=== PATIENT | female | born 1945 | race Caucasian/White ===

== ENCOUNTER 2018-04-13 07:06 | Emergency (ER) | payer MEDICARE, OTHER ==
[~2018-04-13] VITALS: Ht 165.1 cm; Wt 65.9 kg
[~2018-04-13 07:06] MED LIST: ATOR10TA87 PO; TRAM50TA2 PO; ZOF4T PO
[2018-04-13] MEDS ORDERED: normal saline 1000ML IV soln IVB ONE (07:15)
[2018-04-13] MEDS ORDERED: LISI-600 PO ×2 (07:47→10:36)
[2018-04-13 07:50] LABS: BASOPHILS # (AUTO) 0.1 X10'3 (0-0.2); BASOPHILS % (AUTO) 0.7 % (0-1); EOSINOPHILS # (AUTO) 0.1 X10'3 (0-0.9); EOSINOPHILS % (AUTO) 1.3 % (0-6); HEMATOCRIT 45.8 % (35.0-45.0); HEMOGLOBIN 15.4 g/dl (12.0-16.0); LYMPHOCYTES # (AUTO) 0.8 X10'3 (1.1-4.8); LYMPHOCYTES % (AUTO) 8.7 % (21-51); MEAN CORPUSCULAR HGB CONC 33.5 % (33.0-36.5); MEAN CORPUSCULAR VOLUME 92.4 FL (78-98); MEAN PLATELET VOLUME 8.6 FL (7.4-10.4); MONOCYTES # (AUTO) 0.3 X10'3 (0-0.9); MONOCYTES % (AUTO) 3.2 % (2-12); NEUTROPHILS # (AUTO) 7.9 X10'3 (1.8-7.7); NEUTROPHILS % (AUTO) 86.1 % (42-75); PLATELET COUNT 282 X10'3 (140-440); RED BLOOD COUNT 4.95 X10'6 (4.20-5.60); RED CELL DISTRIBUTION WIDTH 12.6 % (11.5-14.5); WHITE BLOOD COUNT 9.2 X10'3 (4.5-11.0)
[2018-04-13 08:03] LABS: ALANINE AMINOTRANSFERASE 26 U/L (12-78); ALBUMIN 4.4 G/DL (3.4-5.0); ALBUMIN/GLOBULIN RATIO 1.3 (1.1-1.5); ALKALINE PHOSPHATASE 93 IU/L (46-116); ANION GAP 12 (8-16); ASPARTATE AMINO TRANSFERASE 21 U/L (10-37); BILIRUBIN,TOTAL 0.7 MG/DL (0.1-1.0); BLOOD UREA NITROGEN 12 MG/DL (7-18); BUN/CREATININE RATIO 13.3 (6.6-38.0); CALCIUM 9.4 MG/DL (8.5-10.1); CHLORIDE 105 MMOL/L (99-107); GLUCOSE 149 MG/DL (70-104); POTASSIUM 3.9 MMOL/L (3.5-5.1); SODIUM 144 MMOL/L (135-145); TOTAL CARBON DIOXIDE 26.6 MMOL/L (24-32); TOTAL PROTEIN 7.7 G/DL (6.4-8.2); eGFR 62 ML/MIN
[2018-04-13] MEDS ORDERED: ondansetron/PF 4mg/2ml inj IV ONE (08:25)
[2018-04-13 08:53] LABS: CLARITY,URINE SLIGHTLY CLOUDY (Clear); COLOR,URINE STRAW (Yellow); GLUCOSE, URINE NEGATIVE (Neg); KETONES,URINE TRACE mg/dl (Neg); LEUKOCYTE ESTERASE ,URINE NEGATIVE (Neg); NITRITES, URINE NEGATIVE (Neg); OCCULT BLOOD,URINE NEGATIVE (Neg); PH,URINE 8.5 (4.8-8.0); PROTEIN,URINE NEGATIVE (Neg); UROBILINOGEN,URINE 0.2 E.U/dL (0.2-1.0)
[2018-04-13 09:00] LABS: UA COLLECTION TYPE CLN CATCH MIDSTREAM
[2018-04-13 09:01] LABS: MUCUS STRANDS FEW /LPF (Neg); SQUAMOUS EPITHELIAL CELL,UR FEW /LPF (FEW)
[2018-04-13 09:02] LABS: AMORPHOUS PHOSPHATES 1+; BACTERIA,URINE FEW /HPF (Neg); RBC,URINE NONE SEEN /HPF (0-2); WBC,URINE 0-4 /HPF (0-4)
[2018-04-13] MEDS ORDERED: ketorolac trometh. 30mg/ml inj. IV ONE (09:05)
[2018-04-13] MEDS ORDERED: ketorolac tromethamine 15mg/ml inj. IV ONE (09:10)
[2018-04-13] MEDS ORDERED: metoclopramide 5 mg/ml inj IV ONE (09:20)
[2018-04-13] MEDS ORDERED: diphenhydrAMINE 50 mg/ml inj IV ONE (09:20)
[2018-04-13 09:38] VITALS: BP 170/97
[2018-04-13 09:42] LABS: TROPONIN I < 0.04 NG/ML (0.0-0.05)
[2018-04-13] MEDS ORDERED: ONDA4TAB12 PO (10:09)
[2018-04-13] MEDS ORDERED: lisinopril 10 MG tablet PO ONE ×2 (10:10→10:30)
== END 2018-04-13 10:51 | disposition home or self-care (01) ==
LOC: ER 07:07
DX: S09.90XA Unspecified injury of head, initial encounter (principal); R11.2 Nausea with vomiting, unspecified; E78.00 Pure hypercholesterolemia, unspecified; I10 Essential (primary) hypertension; Z90.49 Acquired absence of other specified parts of digestive tract; Z90.710 Acquired absence of both cervix and uterus; Z88.5 Allergy status to narcotic agent; Z88.8 Allergy status to other drugs, medicaments and biological substances; Z79.899 Other long term (current) drug therapy; W01.198A Fall on same level from slipping, tripping and stumbling with subsequent striking against other object, initial encounter; Y93.89 Activity, other specified; Y92.098 Other place in other non-institutional residence as the place of occurrence of the external cause; Y99.8 Other external cause status
CPT/HCPCS: 36415; 70450; 80053; 81001; 84145; 84443; 84484; 85025; 93005; 96361; 96374; 96375; 99285; J1200; J1885; J2405; J2765; J7030

== ENCOUNTER 2019-11-14 13:15 | Emergency (ER) | payer MEDICARE ==
[~2019-11-14] VITALS: Ht 165.1 cm; Wt 64.0 kg
[~2019-11-14 13:15] MED LIST changes: -ATOR10TA87 PO; +LISI-600 PO; +ONDA4TAB12 PO; -ZOF4T PO
--- NOTE | 2019-11-14 14:08 | NUR ---
PT STATES SHE HAS NOT BEEN TAKING HER MEDS BECAUSE SHE HASNT HAD HER MD REFILL THEM, INCLUDING HER THYROID MEDS.
[2019-11-14 14:14] LABS: BASOPHILS # (AUTO) 0.1 X10'3 (0-0.2); BASOPHILS % (AUTO) 0.7 % (0-1); EOSINOPHILS # (AUTO) 0.1 X10'3 (0-0.9); EOSINOPHILS % (AUTO) 1.2 % (0-6); HEMATOCRIT 42.9 % (35.0-45.0); HEMOGLOBIN 14.9 g/dl (12.0-16.0); LYMPHOCYTES # (AUTO) 1.4 X10'3 (1.1-4.8); LYMPHOCYTES % (AUTO) 20.2 % (21-51); MEAN CORPUSCULAR HEMOGLOBIN 32.7 PG (27.0-31.0); MEAN CORPUSCULAR HGB CONC 34.8 g/dL (33.0-36.5); MEAN CORPUSCULAR VOLUME 93.9 FL (78-98); MEAN PLATELET VOLUME 8.4 FL (7.4-10.4); MONOCYTES # (AUTO) 0.5 X10'3 (0-0.9); MONOCYTES % (AUTO) 7.4 % (2-12); NEUTROPHILS # (AUTO) 4.9 X10'3 (1.8-7.7); NEUTROPHILS % (AUTO) 70.5 % (42-75); PLATELET COUNT 236 X10'3 (140-440); RED BLOOD COUNT 4.57 X10'6 (4.20-5.60); WHITE BLOOD COUNT 6.9 X10'3 (4.5-11.0)
[2019-11-14] MEDS ORDERED: normal saline 1000ML IV soln IVB ONE (14:15)
[2019-11-14 14:29] LABS: ALANINE AMINOTRANSFERASE 30 U/L (12-78); ALBUMIN 4.4 G/DL (3.4-5.0); ALBUMIN/GLOBULIN RATIO 1.5 (1.1-1.5); ALKALINE PHOSPHATASE 81 IU/L (46-116); ANION GAP 8 (8-16); ASPARTATE AMINO TRANSFERASE 23 U/L (10-37); BILIRUBIN,TOTAL 0.6 MG/DL (0.1-1.0); BLOOD UREA NITROGEN 15 MG/DL (7-18); CALCIUM 9.6 MG/DL (8.5-10.1); CHLORIDE 107 MMOL/L (99-107); CREATININE 0.88 MG/DL (0.40-0.90); GLUCOSE 122 MG/DL (70-104); POTASSIUM 3.6 MMOL/L (3.5-5.1); SODIUM 141 MMOL/L (135-145); TOTAL CARBON DIOXIDE 25.6 MMOL/L (24-32); TOTAL PROTEIN 7.4 G/DL (6.4-8.2); eGFR 63 ML/MIN
[2019-11-14] MEDS ORDERED: iohexol 350MG/ML 100ml bottle IV ONE (15:01)
[2019-11-14 16:08] VITALS: BP 182/98
[2019-11-14] MEDS ORDERED: LISI10TA4 PO (16:31)
[2019-11-14] MEDS ORDERED: CARV3.12 PO (16:31)
== END 2019-11-14 18:16 | disposition home or self-care (01) ==
LOC: ER 13:16
DX: R42 Dizziness and giddiness (principal); R00.0 Tachycardia, unspecified; I10 Essential (primary) hypertension; E78.00 Pure hypercholesterolemia, unspecified; Z90.49 Acquired absence of other specified parts of digestive tract; Z90.710 Acquired absence of both cervix and uterus; Z60.2 Problems related to living alone; Z88.5 Allergy status to narcotic agent; Z88.8 Allergy status to other drugs, medicaments and biological substances; Z79.899 Other long term (current) drug therapy
CPT/HCPCS: 36415; 71045; 71275; 80053; 84439; 84443; 84484; 85025; 93005; 96360; 99285; J7030; Q9967

== ENCOUNTER 2023-08-12 05:26 | Day surgery (SDC) | payer MEDICARE ==
[2023-08-07 16:24] LABS: BASOPHILS % (AUTO) 0.6 % (0-1); EOSINOPHILS # (AUTO) 0.1 X10'3 (0-0.9); LYMPHOCYTES # (AUTO) 1.6 X10'3 (1.1-4.8); LYMPHOCYTES % (AUTO) 22.1 % (21-51); MEAN CORPUSCULAR HEMOGLOBIN 31.5 PG (27.0-31.0); MEAN CORPUSCULAR HGB CONC 34.1 g/dL (33.0-36.5); MEAN CORPUSCULAR VOLUME 92.2 FL (78-98); MEAN PLATELET VOLUME 8.5 FL (7.4-10.4); MONOCYTES # (AUTO) 0.4 X10'3 (0-0.9); NEUTROPHILS # (AUTO) 5.2 X10'3 (1.8-7.7); NEUTROPHILS % (AUTO) 70.3 % (42-75); PRE OP HEMATOCRIT 43.3 % (35.0-45.0); PRE OP HEMOGLOBIN 14.8 g/dL (12.0-16.0); PRE OP PLATELET COUNT 256 X10'3 (140-440); PRE OP WHITE BLOOD COUNT 7.4 10'3 (4.8-10.8); RED CELL DISTRIBUTION WIDTH 12.8 % (11.5-14.5)
[2023-08-07 16:37] LABS: ALBUMIN 3.6 G/DL (3.4-5.0); ALBUMIN/GLOBULIN RATIO 0.9 (1.1-1.5); ALKALINE PHOSPHATASE 95 IU/L (46-116); BLOOD UREA NITROGEN 12 MG/DL (7-18); BUN/CREATININE RATIO 15.4 (10.0-20.0); CALCIUM 9.6 MG/DL (8.5-10.1); CHLORIDE 104 MMOL/L (99-107); CREATININE 0.78 MG/DL (0.40-0.90); PRE OP ALT 20 U/L (30-65); PRE OP ANION GAP 10 (8-16); PRE OP AST 14 U/L (10-37); PRE OP BILIRUB, TOTAL 0.7 MG/DL (0.0-1.0); PRE OP GLUCOSE 100 MG/DL (70-104); PRE OP POTASSIUM 3.6 MMOL/L (3.4-5.1); PRE OP SODIUM 142 MMOL/L (135-145); TOTAL CARBON DIOXIDE 28.5 MMOL/L (24-32); TOTAL PROTEIN 7.7 G/DL (6.4-8.2); eGFR 71 ML/MIN
[2023-08-12] VITALS (11 sets, daily range): BP systolic 130–163; BP diastolic 60–96; PULSE 88–98; RESP 11–16; TEMP 98.5; O2SAT 94–100
[~2023-08-12] VITALS: Ht 165.1 cm; Wt 59.0 kg
[~2023-08-12 05:26] MED LIST changes: -LISI-600 PO; +LISI40TA13 PO; -ONDA4TAB12 PO; -TRAM50TA2 PO
[2023-08-12] MEDS ORDERED: ringers solution, lacted 1,000 ML IV SCH ×2 (05:30→07:20)
[2023-08-12] MEDS: famotidine 20mg tablet PO ONE (05:30)
[2023-08-12] MEDS: cefazolin 2gm/D5W 100mL 100 ML IV ONE (05:54)
[2023-08-12] MEDS: scopolamine 1MG/72H patch 1 PATCH PATCH.TD.3 TD SCH (06:44)
[2023-08-12] MEDS: aprepitant 40mg capsule PO ONE (07:19)
[2023-08-12] MEDS ORDERED: meperidine/PF 25mg/ml syringe IV PRN (07:20)
[2023-08-12] MEDS ORDERED: HYDROmorphone/PF 0.2 MG/ML SYRINGE IV PRN ×2 (07:20)
[2023-08-12] MEDS ORDERED: ondansetron/PF 4mg/2ml inj IV PRN (07:20)
[2023-08-12] MEDS ORDERED: hydrALAZINE 20mg/ml inj. IV PRN (07:20)
[2023-08-12] MEDS ORDERED: labetalol 20mg/4ml (5mg/ml) syringe IV PRN (07:20)
[2023-08-12] MEDS ORDERED: fentaNYL/PF 50MCG/1 ML 2ML syringe IV PRN (07:20)
[2023-08-12] MEDS ORDERED: fentaNYL /PF 50mcg/ml 5ml ampule ONE (07:22)
[2023-08-12] MEDS ORDERED: midazolam 1 mg/ML 2ml injection ONE (07:22)
[2023-08-12] MEDS ORDERED: sevoflurane 250ml liquid IH ONE (07:22)
[2023-08-12] MEDS ORDERED: esmolol inj. 0 ML IV ONE (07:37)
[2023-08-12] MEDS ORDERED: propofol inj 20 ML IV ONE (07:37)
[2023-08-12] MEDS ORDERED: rocuronium 10mg/ml inj IV ONE (07:37)
[2023-08-12] MEDS ORDERED: ondansetron/PF 4mg/2ml inj ONE (07:37)
[2023-08-12] MEDS ORDERED: dexamethasone sod phosphate 4mg/ml inj. ONE (07:37)
[2023-08-12] MEDS ORDERED: LIDOcaine 2% (20mg/ml) 5ml vial ONE (07:37)
[2023-08-12] MEDS: BUPIVAcaine/PF 2.5mg/ml (0.25%) 10ml vial ONE (07:42)
[2023-08-12] MEDS: LIDOcaine 1% 30ml preserv. free vial ONE (07:42)
[2023-08-12] MEDS ORDERED: sugammadex 200mg/2ml injection IV ONE (08:52)
[2023-08-12] MEDS ORDERED: esmolol inj. 10 ML IV ONE (08:57)
[2023-08-12] MEDS: acetaminophen 1,000mg/100ml IV 100 ML IV ONE (09:12)
[2023-08-12] MEDS: fentaNYL/PF 50MCG/1 ML 2ML syringe IV PRN (09:26)
[2023-08-12] MEDS: ketorolac tromethamine 15mg/ml inj. IV ONE (09:46)
[2023-08-12] MEDS: HYDROcodone/acetaminophen 5mg/325mg tablet PO PRN (10:06)
== END 2023-08-12 10:57 | disposition home or self-care (01) ==
LOC: PAS 05:26
PROVIDERS: ATTEND Surgery
DX: K40.90 Unilateral inguinal hernia, without obstruction or gangrene, not specified as recurrent (principal); K40.30 Unilateral inguinal hernia, with obstruction, without gangrene, not specified as recurrent; K42.9 Umbilical hernia without obstruction or gangrene; I10 Essential (primary) hypertension; F41.9 Anxiety disorder, unspecified; F32.A Depression, unspecified; Z88.5 Allergy status to narcotic agent; Z79.899 Other long term (current) drug therapy; Z90.710 Acquired absence of both cervix and uterus; Z90.49 Acquired absence of other specified parts of digestive tract; Z98.890 Other specified postprocedural states; Z88.8 Allergy status to other drugs, medicaments and biological substances; Z72.89 Other problems related to lifestyle; Z80.8 Family history of malignant neoplasm of other organs or systems; Z82.49 Family history of ischemic heart disease and other diseases of the circulatory system
CPT/HCPCS: 36415; 49591; 49650; 80053; 82948; 85025; 93005; C1781; J0131; J0690; J1100; J1885; J2250; J2405; J2704; J3010; J3490; J7030; J7120; J8501; Z7506; Z7508; Z7512; A4215; A4618

== ENCOUNTER 2024-05-18 20:00 | Emergency (ER) | payer MEDICARE ==
[~2024-05-18] VITALS: Ht 165.1 cm; Wt 58.6 kg
[2024-05-18 20:26] LABS: BASOPHILS % (AUTO) 0.4 % (0-1); EOSINOPHILS % (AUTO) 0.2 % (0-6); HEMATOCRIT 41.1 % (35.0-45.0); HEMOGLOBIN 14.4 g/dl (12.0-16.0); LYMPHOCYTES # (AUTO) 0.5 X10'3 (1.1-4.8); MEAN CORPUSCULAR HEMOGLOBIN 32.5 PG (27.0-31.0); MEAN CORPUSCULAR HGB CONC 35.1 g/dL (33.0-36.5); MEAN CORPUSCULAR VOLUME 92.5 FL (78-98); MONOCYTES # (AUTO) 0.6 X10'3 (0-0.9); MONOCYTES % (AUTO) 6.5 % (2-12); NEUTROPHILS # (AUTO) 7.5 X10'3 (1.8-7.7); NEUTROPHILS % (AUTO) 86.9 % (42-75); PLATELET COUNT 244 X10'3 (140-440); RED BLOOD COUNT 4.45 X10'6 (4.20-5.60); RED CELL DISTRIBUTION WIDTH 13.2 % (11.5-14.5); WHITE BLOOD COUNT 8.6 X10'3 (4.5-11.0)
[2024-05-18 20:41] LABS: ALANINE AMINOTRANSFERASE 21 U/L (12-78); ALBUMIN 4.2 G/DL (3.4-5.0); ALBUMIN/GLOBULIN RATIO 1.2 (1.1-1.5); ALKALINE PHOSPHATASE 85 IU/L (46-116); ANION GAP 11 (8-16); ASPARTATE AMINO TRANSFERASE 17 U/L (10-37); BILIRUBIN,TOTAL 1.1 MG/DL (0.1-1.0); BLOOD UREA NITROGEN 10 MG/DL (7-18); CALCIUM 9.7 MG/DL (8.5-10.1); CHLORIDE 103 MMOL/L (99-107); CREATININE 0.91 MG/DL (0.40-0.90); GLUCOSE 123 MG/DL (70-104); LIPASE 24 U/L (16-77); SODIUM 138 MMOL/L (135-145); TOTAL CARBON DIOXIDE 23.8 MMOL/L (24-32); TOTAL PROTEIN 7.6 G/DL (6.4-8.2); eCRCL 46 ML/MIN; eGFR 60 ML/MIN
[2024-05-18] MEDS ORDERED: pneumococcal 23-VAL P-sac vacc 25 mcg/0.5ml vial IMVAC ONE (21:35)
[2024-05-18] MEDS: ondansetron 4mg rapidly disintigrating tab PO ONE (21:40)
[2024-05-18] MEDS ORDERED: iohexol 300mg/ml 100ml inj. ONE (22:10)
[2024-05-18] MEDS: normal saline 1000ml 1,000 ML IV ONE (22:50)
[2024-05-18] MEDS: ondansetron/PF 4mg/2ml inj IV ONE (22:52)
[2024-05-18] MEDS: TETanus/Pertussis (Acell)/Diphther VAC/PF (Tdap-Adult) 0.5ml syringe IMVAC ONE (22:54)
[2024-05-18] MEDS: FLU VACC TS2024-25(6MOS UP)/PF 45 MCG/0.5 ML SYRINGE IMVAC ONE (23:04)
[2024-05-18] MEDS: acetaminophen 1,000mg/100ml IV 100 ML IV ONE (23:04)
[2024-05-18 23:12] VITALS: TEMP 99.8
[2024-05-19 00:43] VITALS: BP 145/76; PULSE 98; RESP 12; O2SAT 99
== END 2024-05-19 00:44 | disposition home or self-care (01) ==
LOC: ER 20:01
DX: R19.03 Right lower quadrant abdominal swelling, mass and lump (principal); E78.00 Pure hypercholesterolemia, unspecified; I10 Essential (primary) hypertension; Z90.49 Acquired absence of other specified parts of digestive tract; Z90.710 Acquired absence of both cervix and uterus; Z88.8 Allergy status to other drugs, medicaments and biological substances; Z79.899 Other long term (current) drug therapy; E07.9 Disorder of thyroid, unspecified; Z60.2 Problems related to living alone; Z20.822 Contact with and (suspected) exposure to COVID-19
CPT/HCPCS: 36415; 71045; 74177; 80053; 83605; 83690; 83735; 84145; 85025; 87040; 87502; 87503; 87811; 90472; 90686; 90715; 93005; 96374; 96375; 99285; G0008; J0131; J2405; J7030; Q9967; 90471; 96361

== ENCOUNTER 2025-01-18 14:16 | Emergency (ER) | payer MEDICARE, OTHER ==
[~2025-01-18] VITALS: Ht 165.1 cm; Wt 60.5 kg
[~2025-01-18 14:16] MED LIST changes: -LISI40TA13 PO; +LISI40TA20 PO
--- NOTE | 2025-01-18 14:31 | ELECTROCARDIOGRAPH REPORT ---
[facility] Test Date: 2025-01-18 Test Time: 14:28:25 Pat Name: SHADE MOYA Department: [facility]-ER Patient ID: [facility]-[id number] Room: Gender: F Claims Supervisor: : 1945 Requested By: PERRI WHELAN Order Number: [id number] Reading MD: Dr. Marques Ordaz Measurements Intervals [place] Rate: 101 P: 46 KS: 124 QRS: -14 QRSD: 81 T: 47 QT: 315 QTc: 409 Interpretive Statements Sinus tachycardia Atrial premature complex Electronically Signed On 01-18-2025 18:34:[address] Marques Ordaz Please click the below link to view image of tracing.
--- NOTE | 2025-01-18 14:43 | RADIOLOGY REPORT ---
DI CHEST,TWO VIEWS CLINICAL HISTORY: CHEST WALL PAIN COMPARISON: None TECHNIQUE: Frontal and lateral view of the chest was obtained FINDINGS: Lines and Tubes: None Lungs: No focal consolidation. Pleura: No effusion. No pneumothorax. Cardiomediastinal contours: Unremarkable Bones: No acute osseous abnormality. IMPRESSION: No acute cardiopulmonary disease.
[2025-01-18 15:26] VITALS: TEMP 98.9
[2025-01-18] MEDS: labetalol 20mg/4ml (5mg/ml) syringe IV ONE (15:28)
[2025-01-18 15:34] LABS: MEAN PLATELET VOLUME 8.2 FL (7.4-10.4); RED CELL DISTRIBUTION WIDTH 13.2 % (11.5-14.5)
[2025-01-18 15:52] LABS: CREATININE 0.81 MG/DL (0.40-0.90); TOTAL CARBON DIOXIDE 25.2 MMOL/L (24-32); eCRCL 51 ML/MIN; eGFR 68 ML/MIN
--- NOTE | 2025-01-18 15:59 | Physician Documentation ---
History of Present Illness ~ Chief Complaint: Chest Wall Pain Stated Complaint: STERNUM PAIN Time Seen by MD: 14:51 Primary Medical Doctor: al Source: patient Mode of Arrival: POV, Ambulatory Exam Limitations: no limitations HPI Otherwise healthy female in because she was at work and she lifted up a bag of garbage that it had part of a tire in it she did not know that and she lifted it up to put it in but got the large garbage collection been and shortly after she had some mid chest pain. She states it was 3/10 and reports it as burning. She is not sure if it is because she lifted something heavy and pulled a muscle. She went home and talk to a family member and they told her to come in to be evaluated. No cardiac history. Nonsmoker. Currently rates it 2/10. Describes it as burning. Tetanus within 5 Years?: No Allergies: Coded Allergies: morphine (Verified Allergy, Unknown, HIVES AND AGITATED, 01/18/25) promethazine HCl (Verified Allergy, Unknown, AGITATED AND SICK, 01/18/25) Active Prescriptions See Medication Reconciliation Form. Medication Reconciliation Scheduled Lisinopril* (Lisinopril*), 1 TAB PO HS, (Reported) Past Medical History Past Medical History: High Cholesterol, Hypertension, Thyroid (unspecified) Past Surgical History: cholecystectomy, hysterectomy, other Alcohol Use: None Lives with: Alone Occupation: employed Review of Systems All Other Systems at this time: Reviewed and Negative Physical Exam Vital Signs: Temperature: 98.9, Source: Oral, Heart Rate: 86, Respiratory Rate: 16, BP: 193/91, Pulse Oximetry: 97, Weight: 60.550 Oxygen Flow Rate: 0 General Appearance: alert, WD/WN Neck: full range of motion, supple Cardiovascular: regular rate, rhythm, no murmur Respiratory: lungs clear, normal breath sounds, no respiratory distress Chest: normal inspection Respiratory Chest wall: Mildly tender to palpation at the base of the sternum and parasternal region Gastrointestinal: non-tender Skin: normal color, warm/dry Neurologic: oriented x4, memory intact Psychiatric: normal mood/affect Progress Progress Note Really difficult to say if this is cardiac in nature versus musculoskeletal. Trace reproduction on exam. Troponin negative x2. EKG, CBC and chemistry unremarkable. I am discharging her home in good condition. Recommending follow up with PCP in a week to discuss if echocardiogram is warranted. She is to return here if new or worsening symptoms prior to follow-up. Results/Orders Results/Orders Orders - PERRI WHELAN MD Chest,Two Views (01/18/25 14:33) Completed Orders - PERRI WHELAN MD Chest,Two Views (01/18/25 14:33) Electrocardiogram (01/18/25 14:25) Cbc/Diff (01/18/25 14:59) BMP (01/18/25 15:00) Labetalol Inj. (Trandate 20 Mg/4ml Syrin (01/18/25 15:15) Hs Troponin I W Calculations (01/18/25 15:01) Hs Troponin I W Calculations (01/18/25 16:57) Medications Received in ER Medications (Trade) Dose Ordered Sig/Rochelle Route PRN Reason Start Time Stop Time Status Last Admin Dose Admin (Trandate 20 mg/ 4ml syringe) 20 mg ONCE ONCE IV 01/18/25 15:15 01/18/25 15:16 DC 01/18/25 15:28 20 MG Vital Signs 01/18/25 01/18/25 01/18/25 01/18/25 14:21 14:34 15:26 15:59 Temp 98.9 98.9 Pulse 113 86 70 Resp 18 16 16 B/P (MAP) 206/105 193/91 (125) 157/80 (105) Pulse Ox 97 97 97 O2 Flow Rate 0 0 0 01/18/25 17:39 Pulse 61 Resp 16 B/P (MAP) 154/68 Pulse Ox 98 Laboratory Tests Test 01/18/25 15:24 01/18/25 17:03 White Blood Count 4.8 Red Blood Count 4.58 Hemoglobin 14.4 Hematocrit 42.0 Mean Corpuscular Volume 91.7 Mean Corpuscular Hemoglobin 31.4 H Mean Corpuscular Hemoglobin Concent 34.2 Red Cell Distribution Width 13.2 Platelet Count 226 Mean Platelet Volume 8.2 Neutrophils (%) (Auto) 56.7 Lymphocytes (%) (Auto) 30.1 Monocytes (%) (Auto) 8.4 Eosinophils (%) (Auto) 4.1 Basophils (%) (Auto) 0.7 Neutrophils # (Auto) 2.7 Lymphocytes # (Auto) 1.5 Monocytes # (Auto) 0.4 Eosinophils # (Auto) 0.2 Basophils # (Auto) 0.0 CBC Comment Sodium Level 138 Potassium Level 3.5 Chloride Level 106 Carbon Dioxide Level 25.2 Anion Gap 7 L Blood Urea Nitrogen 15 Creatinine 0.81 Estimated GFR/1.73 m2 68 BUN/Creatinine Ratio 18.5 Glucose Level 102 Calcium Level 9.5 Troponin I High Sensitivity 7 9 Albumin 4.3 Chemistry Comments Troponin I High Sens Percent Delta 28 Troponin I Hi Sens Absolute Change 2 EKG/XRAY/CT/US/VASC/MRI EKG : EKG Rate: 101 EKG: NSR, no ST T wave changes, MA (124) Departure Impression: Primary Impression: Chest pain Qualified Codes: R07.9 - Chest pain, unspecified Discharge Instructions: Nonspecific Chest Pain, Adult, [id number] Additional Instructions: Follow-up with your doctor in a week for recheck and to see if further testing is warranted. Return here if new or worsening symptoms prior to follow-up. Referrals: NO PRIMARY CARE PROVIDER (PCP) Education Educated: Patient Educated regarding: diagnosis, treatment Signature Scribe Signature: No scribe used Attestation: No scribe used PERRI WHELAN MD Jan 18, 2025 15:59
[2025-01-18 17:39] VITALS: BP 154/68; PULSE 61; RESP 16; O2SAT 98
== END 2025-01-18 17:43 | disposition home or self-care (01) ==
LOC: ER 14:18
DX: R07.2 Precordial pain (principal); I10 Essential (primary) hypertension; E78.00 Pure hypercholesterolemia, unspecified; Z88.5 Allergy status to narcotic agent; Z90.49 Acquired absence of other specified parts of digestive tract; Z90.710 Acquired absence of both cervix and uterus
CPT/HCPCS: 36415; 71046; 80048; 84484; 85025; 93005; 96374; 99285; J3490